=== PATIENT | male | born 1950 | race Asian ===

== ENCOUNTER 2021-04-15 22:10 | Inpatient (IN) | payer OTHER, MEDICAID ==
[~2021-04-15] VITALS: Ht 167.6 cm; Wt 72.3 kg
[2021-04-15 22:20] VITALS: BP_SYST 148
--- NOTE | 2021-04-15 22:20 | NUR ---
PT TO REMAIN IN ER LOBBY UNTIL ER BED BECOMES AVAILABLE.
--- NOTE | 2021-04-15 23:05 | NUR ---
PT TO BED 8 FOR EVALUATION. REPORT GIVEN TO ZEYAD KAY WHO WILL ASSUME CARE.
--- NOTE | 2021-04-15 23:05 | NUR ---
Received patient to ER w/ c/o abd pain associated w/ nausea. Introduced self to patient, positioned for comfort. Bed to low position sr up. continue to monitor. Patient resting quietly. No acute distress noted. Vital signs within normal range.
[2021-04-15 23:09] LABS: BILIRUBIN,URINE 2+ (NEGATIVE); BLOOD, URINE 2+ (NEGATIVE); CLARITY/URINE CLEAR (CLEAR); COLOR,URINE YELLOW (YELLOW); GLUCOSE,URINE NEGATIVE (NEGATIVE); KETONES,URINE 1+ (NEGATIVE); LEUKOCYTE ESTERASE ,URINE TRACE (NEGATIVE); NITRITE, URINE NEGATIVE (NEGATIVE); PROTEIN URINE NEGATIVE (NEGATIVE); UROBILINOGEN,URINE 0.2 (0.2-1.0)
[2021-04-15 23:22] LABS: BACTERIA,URINE FEW /HPF (None Seen)
[2021-04-16] MEDS ORDERED: MORPHINE 2 MG/ML INJ. SYRINGE IVP ONE (01:00)
[2021-04-16] MEDS ORDERED: METOCLOPRAMIDE HCL 10 MG/2 ML VIAL IVP ONE ×2 (01:00→12:31)
[2021-04-16] MEDS ORDERED: PROCHLORPERAZINE EDISYLATE 10 MG/2 ML VIAL ONE (01:03)
[2021-04-16] MEDS ORDERED: DEXAMETHASONE SOD PHOSPHATE 10 MG/ML VIAL ONE (01:04)
[2021-04-16] MEDS ORDERED: MORPHINE 2 MG/ML INJ. SYRINGE ONE (01:04)
--- NOTE | 2021-04-16 01:05 | NUR ---
ER Dr.D' Montgomery at bedside examining patient.
--- NOTE | 2021-04-16 01:30 | NUR ---
# 20 gauge angiocath placed to left forearm. Use of asceptic technique. Opsite placed over site. Blood return noted. Blood for lab drawn from site. Flushed with 10 cc of normal saline. No evidence of infiltration noted. Patient tolerated well.
--- NOTE | 2021-04-16 01:31 | NUR ---
Medicated w/ reglan 5mg and 2mg morphine ivp per MD orders. IV site with no s/s of infiltration at this time. Will cont to monitor and observe for any adverse reaction.
[2021-04-16 01:45] LABS: MEAN CORPUSCULAR HEMOGLOBIN 30 pg (27-31); MONOCYTES # (AUTO) 0.9 K/uL (0.0-1.0)
--- NOTE | 2021-04-16 01:47 | NUR ---
Dr. Nguyen at bedside for FAST exam
[2021-04-16 01:49] LABS: BASOPHILS % (AUTO) 0.3 % (0.0-2.0); EOSINOPHILS % (AUTO) 0.3 % (0.0-4.0); HEMATOCRIT 38.5 % (36-54); HEMOGLOBIN 13.2 g/dL (14.0-18.0); LYMPHOCYTES # (AUTO) 0.7 K/uL (1.0-5.5); LYMPHOCYTES % (AUTO) 9.4 % (20.5-51.5); MEAN CORPUSCULAR HGB CONC 34 % (32-36); MEAN CORPUSCULAR VOLUME 89 fL (79.0-98.0); MONOCYTES % (AUTO) 12.2 % (1.7-9.3); NEUTROPHILS % (AUTO) 77.8 % (40.0-70.0); PLATELET COUNT (AUTO) 111 K/uL (130-430); RED BLOOD CELL COUNT(AUTO) 4.35 MIL/uL (4.2-6.2); RED CELL DISTRIBUTION WIDTH 13.8 % (9.0-15.0); WHITE BLOOD COUNT (AUTO) 7.8 K/uL (4.8-10.8)
[2021-04-16 01:55] LABS: CALCIUM 8.2 mg/dL (8.4-11.0); CREATININE 0.87 mg/dL (0.55-1.30); POTASSIUM 3.7 mmol/L (3.5-5.1)
[2021-04-16 02:01] LABS: ALBUMIN 3.6 g/dL (3.4-4.8); TOTAL BILIRUBIN 8.7 mg/dL (0.0-1.0)
[2021-04-16] MEDS ORDERED: PIPERACILLIN/TAZO 3.375 GM in NS 50 ML IV ONE (03:30)
[2021-04-16] MEDS ORDERED: PIPERACILLIN/TAZOBACTAM 3.375 GM/VIAL (ZOSYN) IV ONE (03:34)
--- NOTE | 2021-04-16 03:39 | NUR ---
Medicated w/ zosyn 3.375gms ivpb per MD orders. Iv abx infusing with no s/s of infiltration at this time. Will cont to monitor and observe for any adverse reaction. Bed to low position sr up, continue to monitor.
--- NOTE | 2021-04-16 03:43 | NUR ---
Patient will be admitted to care of JESÚS . Admitted to MED SURG unit. ROOM ASSINGMENT PENDING Belongings list completed. Complete and up to date summary report printed. SBAR report to be given at bedside with opportunity for questions.
--- NOTE | 2021-04-16 04:00 | NUR ---
MRSA obtained and sent to lab
--- NOTE | 2021-04-16 05:06 | NUR ---
Patient resting quietly. No acute distress noted. Vital signs within normal range.
--- NOTE | 2021-04-16 05:19 | NUR ---
Patient will be admitted to care of Ashley. Admitted to Med/surg unit. Will go to room 119A. Belongings list completed. Complete and up to date summary report printed. SBAR report to be given at bedside with opportunity for questions.
--- NOTE | 2021-04-16 05:30 | NUR ---
Admission Note Received patient from ER with diagnosis of cholecystitis. Initial Plan of Care discussed-patient verbalized understanding. Oriented to room, call light, pain management and safety.
[2021-04-16 05:32] VITALS: BP_SYST 145
[2021-04-16] MEDS ORDERED: NACL 0.9% 1,000 ML IV ONE (06:15)
[2021-04-16] MEDS ORDERED: ALBUTEROL SULFATE 0.083% 2.5 MG/3 ML VIAL.NEB INH PRN (06:30)
[2021-04-16] MEDS ORDERED: NALOXONE HCL 0.4 MG/ML AMP (NARCAN) IVP PRN (06:30)
[2021-04-16] MEDS ORDERED: MORPHINE 4 MG INJ. 4 MG/ML VIAL IVP PRN (06:30)
[2021-04-16] MEDS ORDERED: MORPHINE 2 MG/ML INJ. SYRINGE IVP PRN (06:30)
--- NOTE | 2021-04-16 06:37 | NUR ---
CONSULTATION PAGED/CALLED Reason for Consultation: [] CHOLEDOCHOLELITHIASIS Person Who was Notified: [] KEYANNA Consulting Physician: [] DR PELAEZ ADMINISTRATIVE OFFICER FOR DR JEAN Management Rep Specialty: [] GI Ordering Physician: [] DR ABURTO
--- NOTE | 2021-04-16 06:39 | NUR ---
CONSULTATION PAGED/CALLED Reason for Consultation: [] CHOLEDOCHOLITIASIS Person Who was Notified: [] FAYE Consulting Physician: [] DR Tiffany TAPIA Payroll Analyst Specialty: [] GEN SURGEON Ordering Physician: [] DR ABURTO
[2021-04-16] MEDS: NACL 0.9% 1,000 ML IV SCH ×3 (07:52→20:49)
[2021-04-16] MEDS: PIPERACILLIN/TAZO 3.375/DEX-IS 50 ML IV SCH ×3 (07:52→18:11)
[2021-04-16 08:02] VITALS: BP_SYST 139
--- NOTE | 2021-04-16 08:03 | NUR ---
OPENING NOTES AWAKE, ALERT AND ORIENTED. NO SHORTNESS OF BREATH ON ROOM AIR. PAIN IS CONTROLLED AT THIS TIME. IV ACCESS INTACT. IV FLUIDS STARTED. IV ANTIBIOTICS STARTED. KEPT ON NPO. PATIENT VERBALIZED UNDERSTANDING. FALL AND SAFETY CHECKS DONE. CALL LIGHT WITHIN REACH. WILL MONITOR.
[2021-04-16 09:05] LABS: BASOPHILS % (AUTO) 0.3 % (0.0-2.0); EOSINOPHILS % (AUTO) 0.5 % (0.0-4.0); HEMATOCRIT 37.5 % (36-54); HEMOGLOBIN 12.7 g/dL (14.0-18.0); LYMPHOCYTES # (AUTO) 0.8 K/uL (1.0-5.5); LYMPHOCYTES % (AUTO) 11.7 % (20.5-51.5); MEAN CORPUSCULAR HEMOGLOBIN 30 pg (27-31); MEAN CORPUSCULAR HGB CONC 34 % (32-36); MEAN CORPUSCULAR VOLUME 88 fL (79.0-98.0); MONOCYTES # (AUTO) 0.8 K/uL (0.0-1.0); MONOCYTES % (AUTO) 12.9 % (1.7-9.3); NEUTROPHILS # (AUTO) 4.9 K/uL (1.8-7.7); NEUTROPHILS % (AUTO) 74.6 % (40.0-70.0); PLATELET COUNT (AUTO) 98 K/uL (130-430); RED BLOOD CELL COUNT(AUTO) 4.26 MIL/uL (4.2-6.2); RED CELL DISTRIBUTION WIDTH 13.7 % (9.0-15.0); WHITE BLOOD COUNT (AUTO) 6.6 K/uL (4.8-10.8)
[2021-04-16 09:20] LABS: INR 1.1 (0.80-1.20); PROTHROMBIN TIME 11.6 SECS (9.5-12.5)
[2021-04-16 09:51] LABS: ALBUMIN 2.9 g/dL (3.4-4.8); CALCIUM 8.3 mg/dL (8.4-11.0); CREATININE 0.77 mg/dL (0.55-1.30); POTASSIUM 3.1 mmol/L (3.5-5.1); TOTAL BILIRUBIN 6.5 mg/dL (0.0-1.0)
[2021-04-16] MEDS ORDERED: DIATR MEGLU/DIATRIZ SOD 30 ML SOLUTION PO ONE (11:34)
--- NOTE | 2021-04-16 11:45 | NUR ---
CONSENT FOR CONTRAST BECAUSE OF LANGUAGE BARRIER, CONSENT FOR CONTRAST TAKEN FROM DAUGHTER, GABY QUIÑONES.
[2021-04-16 12:06] VITALS: BP_SYST 145
[2021-04-16] MEDS ORDERED: SEVOFLURANE 15 MIN GAS INH ONE (12:31)
[2021-04-16] MEDS ORDERED: LR 1,000 ML IV.SOLN IV ONE (12:31)
[2021-04-16] MEDS ORDERED: MIDAZOLAM HCL 5 MG/5 ML VIAL IVP ONE (12:31)
[2021-04-16] MEDS ORDERED: fentaNYL CITRATE/PF 100 MCG/2 ML AMP IVP ONE (12:31)
[2021-04-16] MEDS ORDERED: BUPIVACAINE /PF 0.25% 30 ML VIAL INJ ONE (12:31)
[2021-04-16] MEDS ORDERED: NS 1000 ML IV.SOLN IV ONE (12:31)
[2021-04-16] MEDS ORDERED: PROPOFOL 200MG/ 20ML VIAL (DIPRIVAN) IV ONE (12:31)
[2021-04-16] MEDS ORDERED: NS IRRIG SOLN 1000 ML IR ONE (12:31)
[2021-04-16] MEDS ORDERED: SUCCINYLCHOLINE CHLORIDE 20 MG/ML(QUELICIN) IVP ONE (12:31)
[2021-04-16] MEDS ORDERED: GLYCOPYRROLATE 0.2 MG/ML VIAL IJ ONE (12:31)
[2021-04-16] MEDS ORDERED: DEXAMETHASONE SOD PHOSPHATE 10 MG/ML VIAL IVP ONE (12:31)
[2021-04-16] MEDS ORDERED: LIDOCAINE/EPI 1% 1:100000 20 ML VIAL INJ ONE (12:31)
[2021-04-16 16:09] VITALS: BP_SYST 146
--- NOTE | 2021-04-16 17:30 | NUR ---
ROUNDS SEEN AND EXAMINED BY DR. PRABHAKAR. EXPLAINED SURGICAL PROCEDURE TO PATIENT; TRANSLATION SERVICES USED. CLEAR LIQUID TONIGHT ORDERED THEN NPO FOR TOMORROW. PATIENT VERBALIZED UNDERSTANDING.
--- NOTE | 2021-04-16 18:38 | NUR ---
CLOSING NOTES RESTING. ALL NEEDS MET. FALL AND SAFETY CHECKS DONE. CALL LIGHT WITHIN REACH. WILL ENDORSE TO NIGHT NURSE.
--- NOTE | 2021-04-16 19:45 | NUR ---
initial notes: pt is awake, alert, oriented x 4. no pain, not distress, stable. ivf infusing well .steady gait, BRP. explain plan of care to pt. pt verbalized understanding. NPO after midnight. needs attended call light in reach. side rails up x 2will follow up.
[2021-04-16 20:50] VITALS: BP_SYST 137
--- NOTE | 2021-04-17 | NUR ---
sleeping no pain, stable. ivf infusing well. will follow-up.
[2021-04-17 00:20] VITALS: BP_SYST 145
[2021-04-17] MEDS: PIPERACILLIN/TAZO 3.375/DEX-IS 50 ML IV SCH ×5 (00:21→23:40)
--- NOTE | 2021-04-17 04:01 | NUR ---
sleeping on his side. no pain, not distress, stable.
[2021-04-17] MEDS: NACL 0.9% 1,000 ML IV SCH ×4 (04:21→23:40)
--- NOTE | 2021-04-17 06:50 | NUR ---
closing: pt is sleeping. no pain. not distress. stable, ivf infusing well. needs attended the whole shift. brp .npo. will give sbar reporting to am rn.
[2021-04-17 06:58] LABS: ALBUMIN 2.5 g/dL (3.4-4.8); BASOPHILS % (AUTO) 0.3 % (0.0-2.0); BILIRUBIN,DIRECT 1.6 mg/dL (0.0-0.3); CALCIUM 8.1 mg/dL (8.4-11.0); CREATININE 0.72 mg/dL (0.55-1.30); EOSINOPHILS # (AUTO) 0.1 K/uL (0.0-0.4); HEMATOCRIT 36.1 % (36-54); HEMOGLOBIN 12.2 g/dL (14.0-18.0); LYMPHOCYTES # (AUTO) 0.6 K/uL (1.0-5.5); MEAN CORPUSCULAR HEMOGLOBIN 30 pg (27-31); MEAN CORPUSCULAR HGB CONC 34 % (32-36); MEAN CORPUSCULAR VOLUME 89 fL (79.0-98.0); MONOCYTES # (AUTO) 0.8 K/uL (0.0-1.0); MONOCYTES % (AUTO) 15.7 % (1.7-9.3); NEUTROPHILS # (AUTO) 3.4 K/uL (1.8-7.7); POTASSIUM 3.5 mmol/L (3.5-5.1); RED BLOOD CELL COUNT(AUTO) 4.07 MIL/uL (4.2-6.2); RED CELL DISTRIBUTION WIDTH 13.7 % (9.0-15.0); TOTAL BILIRUBIN 3.4 mg/dL (0.0-1.0)
[2021-04-17 08:00] VITALS: BP_SYST 130
--- NOTE | 2021-04-17 08:18 | NUR ---
Follow up MRCP Called Radiology spoke with Maurilio, regarding MRCP results - done yesterday 04/16/21 at 0623 - Maurilio will follow up about dictation of MRCP.
--- NOTE | 2021-04-17 08:49 | NUR ---
Paged Dr. Washington regarding MRCP results.
[2021-04-17] MEDS ORDERED: HYDROmorphone 1 MG/ML INJ. CARTRIDGE IVP PRN (10:45)
[2021-04-17] MEDS ORDERED: LR 1,000 ML IV SCH (10:45)
[2021-04-17] MEDS ORDERED: MEPERIDINE HCL/PF 25 MG/ML DISP.SYRIN IVP PRN (10:45)
[2021-04-17] MEDS ORDERED: HYDROmorphone 2 MG/ML VIAL IVP PRN ×2 (10:45)
--- NOTE | 2021-04-17 11:55 | NUR ---
Patient taken to surgery at 1112
[2021-04-17] MEDS ORDERED: HYDROmorphone 1 MG/ML INJ. CARTRIDGE IM PRN (12:45)
[2021-04-17] MEDS ORDERED: HYDROcodone/ACETAMIN 5-325 MG TAB (NORCO/ VICODIN) PO PRN (12:45)
[2021-04-17 13:34] LABS: PLATELET COUNT (AUTO) 91 K/uL (130-430)
[2021-04-17] MEDS ORDERED: ACETAMINOPHEN I.V. 1000 MG 100 ML IV ONE (13:41)
--- NOTE | 2021-04-17 15:36 | NUR ---
Patient returned from OR sleeping at this time, vital signs taken, noted x3 abdominal incision sites with dermabond, x1 MIMI drain noted on the right abdomen, IV line is patent and infusing well, continuing to monitor patient, bed in lowest position, two side rails up, call light placed within reach, fall and aspiration precautions in place, SCD's in place, bed alarm on.
[2021-04-17 16:18] VITALS: BP_SYST 135
--- NOTE | 2021-04-17 18:44 | NUR ---
MIMI drain Drained 50ml dark red blood emptied
--- NOTE | 2021-04-17 18:46 | NUR ---
Closing Note Patient reports feeling much better after surgery. Reported after surgery that he felt dizzy and thirsty. States he is not in any pain right now from communication device on phone. No longer feels dizzy. Emptied MIMI drain. Incisions intact,no active bleeding, Bed in lowest position and call light within reach. Given water at bedside. Will endorse care.
--- NOTE | 2021-04-17 19:30 | NUR ---
initial notes: pt is on bed, alert, awake, oriented x4, s/p laparoscopic cholecystectomy, 3 incision on abdomen- no dressing, covered with brownish transparent. no sign of bleeding.no pain pt has chaitanya drain- red drainage. ivf infusing to left forearm, iv site is leaking and occluded. pt is able to stand and ambulate to bathroom. pt void 600cc and ate his dinner 100%. explain plan of care and safety, pt verbalized understanding. needs attended, call light in reach, side rails up l ow bed position and alarm. will follow-up
--- NOTE | 2021-04-17 20:00 | NUR ---
IV RE-INSERTION: Complaining of leaking to IV site. Restarted on right fore arm . Successful after 2 attempts. Resumed current IVF of ns and regulated @ 150 per hour. Will observe for any signs of infiltration.
[2021-04-17 20:05] VITALS: BP_SYST 116
[2021-04-17] MEDS ORDERED: HYDR-3917 PO (23:35)
[2021-04-18] VITALS: BP_SYST 147
--- NOTE | 2021-04-18 | NUR ---
pt wakes up. no pain, ambulate to bathroom, back to bed, steady gait. stable vital sign. needs attended, call light in reach. will follow-up.
--- NOTE | 2021-04-18 02:04 | NUR ---
pt blood pressure is low bp77/44, hr-72. no urine output. page dr. galvez for orders. Addendum: 04/18/21 at 0453 by Farhan Scott RN disregard wrong entry.
--- NOTE | 2021-04-18 03:00 | NUR ---
pt is sleeping, comfortable. not distress, no pain, stable. ivf infusing well. no sign of infiltration. chaitanya draini intact. will follow-up.
[2021-04-18] MEDS: NACL 0.9% 1,000 ML IV SCH ×3 (05:25→17:21)
[2021-04-18] MEDS: PIPERACILLIN/TAZO 3.375/DEX-IS 50 ML IV SCH ×3 (05:26→17:20)
--- NOTE | 2021-04-18 06:54 | NUR ---
closing: pt is awake, alert. no pain, room air, stable, BRP with steady gait. ivf infusing well. no sign of infiltration. incision is dry and intact. chaitanya drain intact total drain of 40cc. needs attended the whole shift. will give sbar report to am rn.
[2021-04-18 06:56] LABS: BASOPHILS % (AUTO) 0.4 % (0.0-2.0); HEMATOCRIT 36.3 % (36-54); HEMOGLOBIN 12.1 g/dL (14.0-18.0); LYMPHOCYTES # (AUTO) 0.3 K/uL (1.0-5.5); LYMPHOCYTES % (AUTO) 6.8 % (20.5-51.5); MEAN CORPUSCULAR HEMOGLOBIN 30 pg (27-31); MEAN CORPUSCULAR HGB CONC 33 % (32-36); MEAN CORPUSCULAR VOLUME 89 fL (79.0-98.0); MONOCYTES # (AUTO) 0.2 K/uL (0.0-1.0); MONOCYTES % (AUTO) 4.5 % (1.7-9.3); NEUTROPHILS # (AUTO) 4.5 K/uL (1.8-7.7); NEUTROPHILS % (AUTO) 88.3 % (40.0-70.0); PLATELET COUNT (AUTO) 103 K/uL (130-430); RED BLOOD CELL COUNT(AUTO) 4.08 MIL/uL (4.2-6.2); RED CELL DISTRIBUTION WIDTH 13.5 % (9.0-15.0); WHITE BLOOD COUNT (AUTO) 5.1 K/uL (4.8-10.8)
[2021-04-18 07:39] LABS: ALBUMIN 2.5 g/dL (3.4-4.8); C-REACTIVE PROTEIN QUANT 5.6 mg/dL (0-0.5); CALCIUM 8.3 mg/dL (8.4-11.0); CREATININE 0.74 mg/dL (0.55-1.30); POTASSIUM 3.9 mmol/L (3.5-5.1)
[2021-04-18 07:55] LABS: TOTAL BILIRUBIN 1.3 mg/dL (0.0-1.0)
[2021-04-18 08:00] VITALS: BP_SYST 144
--- NOTE | 2021-04-18 08:00 | NUR ---
Opening Note pt is on bed, alert, awake, oriented x4, eating breakfast. s/p laparoscopic cholecystectomy, 3 incision on abdomen- no dressing, one dressing around MIMI drain. no sign of bleeding.Patient has MIMI drain, scant red blood in MIMI drain this morning. Ivf infusing in the left forearm. pt is able to stand and ambulate to bathroom. Explained plan of care and safety, pt verbalized understanding. needs attended, call light in reach
[2021-04-18 10:12] LABS: ERYTHROCYTE SEDIMENTATION RATE 28 MM/HR (0-15)
[2021-04-18 12:31] VITALS: BP_SYST 146
--- NOTE | 2021-04-18 13:00 | NUR ---
Rounding Note Patients gown stained with brown dry blood. No active bleeding noted around MIMI drained site. Changed gown.
[2021-04-18 16:47] VITALS: BP_SYST 138
--- NOTE | 2021-04-18 18:37 | NUR ---
Closing Note Patient resting at bedside eating dinner, 25 ml of sanguineous removed from CHAITANYA drain, reapplied suction on chaitanya drain. IV in right forearm is patent and infusing. Patient reports small amount of abd pain but states per translation device he does not want any medications. Bed in lowest position and call light within reach.
--- NOTE | 2021-04-18 19:35 | NUR ---
ROUNDS PATIENT RESTING COMFORTABLY IN BED, VITALS STABLE, NO PAIN AND DISCOMFORT AT THIS TIME. ASSESSMENT DONE AND DOCUEMNTED. SEE FLOWSHEET. NEEDS ATTENDED TO. SAFETY AND FALL MEASURES IN PLACED. BED IN LOW POSITION. CALL LIGHT PLACED WITHIN REACH.
--- NOTE | 2021-04-19 00:13 | NUR ---
PATIENT RESTING: Patient resting quietly. No acute distress noted. Vital signs within normal range.
[2021-04-19 00:25] VITALS: BP_SYST 147
[2021-04-19] MEDS: NACL 0.9% 1,000 ML IV SCH (00:57)
[2021-04-19] MEDS: PIPERACILLIN/TAZO 3.375/DEX-IS 50 ML IV SCH ×2 (00:57→05:14)
--- NOTE | 2021-04-19 02:15 | NUR ---
ROUNDS PATIENT ASLEEP, RESPIRATIONS EVEN AND UNLABORED, WILL CONTINUE TO MONITOR.
[2021-04-19 06:37] LABS: BASOPHILS % (AUTO) 0.2 % (0.0-2.0); EOSINOPHILS % (AUTO) 0.5 % (0.0-4.0); HEMATOCRIT 37.8 % (36-54); HEMOGLOBIN 12.6 g/dL (14.0-18.0); LYMPHOCYTES # (AUTO) 0.9 K/uL (1.0-5.5); LYMPHOCYTES % (AUTO) 13.4 % (20.5-51.5); MEAN CORPUSCULAR HEMOGLOBIN 30 pg (27-31); MEAN CORPUSCULAR HGB CONC 33 % (32-36); MEAN CORPUSCULAR VOLUME 89 fL (79.0-98.0); MONOCYTES # (AUTO) 0.5 K/uL (0.0-1.0); MONOCYTES % (AUTO) 8.2 % (1.7-9.3); NEUTROPHILS # (AUTO) 4.9 K/uL (1.8-7.7); NEUTROPHILS % (AUTO) 77.7 % (40.0-70.0); PLATELET COUNT (AUTO) 123 K/uL (130-430); RED BLOOD CELL COUNT(AUTO) 4.24 MIL/uL (4.2-6.2); RED CELL DISTRIBUTION WIDTH 13.7 % (9.0-15.0); WHITE BLOOD COUNT (AUTO) 6.4 K/uL (4.8-10.8)
--- NOTE | 2021-04-19 06:55 | NUR ---
CLOSING NOTES PATIENT AWAKE, NO COMPLAINTS AT THIS TIME, ALL NEEDS ATTENDED TO. SAFETY MEASURES MAINTAINED. CALL LIGHT PLACED WITHIN REACH.
[2021-04-19 07:45] LABS: ALBUMIN 2.6 g/dL (3.4-4.8); C-REACTIVE PROTEIN QUANT 2.2 mg/dL (0-0.5); CALCIUM 8.3 mg/dL (8.4-11.0); CREATININE 0.86 mg/dL (0.55-1.30); POTASSIUM 3.8 mmol/L (3.5-5.1); TOTAL BILIRUBIN 1.1 mg/dL (0.0-1.0)
--- NOTE | 2021-04-19 07:45 | NUR ---
Opening Notes Patient is awake, alert and oriented x4. Mandarin speaking only, able to follow simple commands. No resp distress noted. Breathing is even and unlabored. Pt c/o intermittent abdominal pain, /10, does not want pain meds at this time. IV site on right FA 20 gauge intact at this time. NS @ 150 cc/hr, infusing well at this time. Pt is ambulatory steady gait. MIMI drain noted on right side of abdomen, serous output noted. NO signs of redness noted. All needs met. Safety and fall precautions in place. Bed in lowest position, locked. Will continue to monitor.
[2021-04-19 08:00] VITALS: BP_SYST 155
[2021-04-19 09:21] VITALS: BP_SYST 147
[2021-04-19 10:32] LABS: ERYTHROCYTE SEDIMENTATION RATE 20 MM/HR (0-15)
--- NOTE | 2021-04-19 10:54 | NUR ---
Patient is being seen and examined by DR ESPINOSA
[2021-04-19 10:58] VITALS: BP_SYST 150
[2021-04-19 11:40] VITALS: BP_SYST 121
--- NOTE | 2021-04-19 11:40 | NUR ---
D/C Patient Patient given medication reconciliation form and D/C instructions. Exit Care provided. Patient verbalized understanding. MD discussed with patient the results and treatment provided. Ambulatory with steady gait for discharge to home. Patient in stable condition, ID band removed. IV catheter removed, intact and dressing applied, no active bleeding. Rx of given. Patient educated on pain management. All belongings sent with patient. NURSE S/W DAUGHTER, GABY, TO FOLLOW UP WITH DR PRABHAKAR WITHIN 3-4 WEEKS OF DC. PT AND FAMILY AWARE AND AGREED.
== END 2021-04-19 11:40 | disposition home or self-care (01) | DRG 417 ==
LOC: SED 22:10 → SMU 04-16 03:39
PROVIDERS: ADMIT Internal Medicine Hospice and Palliative Medicine; ATTEND Internal Medicine Hospice and Palliative Medicine
PROC: BF121ZZ Fluoroscopy of Gallbladder using Low Osmolar Contrast (ICD-10-PCS; 2021-04-17)
PROC: 0FT44ZZ Resection of Gallbladder, Percutaneous Endoscopic Approach (ICD-10-PCS; principal; 2021-04-17 12:31)
DX: K80.64 Calculus of gallbladder and bile duct with chronic cholecystitis without obstruction (principal); K85.10 Biliary acute pancreatitis without necrosis or infection; E43 Unspecified severe protein-calorie malnutrition; I10 Essential (primary) hypertension; D69.6 Thrombocytopenia, unspecified; D64.9 Anemia, unspecified; R74.01 Elevation of levels of liver transaminase levels; Z20.822 Contact with and (suspected) exposure to COVID-19; E83.51 Hypocalcemia; R73.9 Hyperglycemia, unspecified; E83.52 Hypercalcemia; E80.6 Other disorders of bilirubin metabolism; Z68.25 Body mass index [BMI] 25.0-25.9, adult; Z90.49 Acquired absence of other specified parts of digestive tract
CPT/HCPCS: 36415; 71045; 74181; 76000; 76376; 76700-TC; 80053; 80061; 81000; 82150; 82248; 83690; 85025; 85610-TC; 85651-TC; 86140; 86886; 86900; 86901; 87081; 88304; 93005; 96365; 96375; 99285; C1727; C1758; J0131; J0330; J0780; J1100; J2250; J2270; J2543; J2704; J2765; J3010; J3490; J7030; J7120; Q9964; Q9967